=== PATIENT | female | born 1985 | race Caucasian/White ===

== ENCOUNTER 2018-01-27 11:41 | Emergency (ER) | payer OTHER ==
[2018-01-27 12:06] VITALS: BP 152/89
--- NOTE | 2018-01-27 12:52 | ER Document Report ---
ED Medical Screen (RME) - General Chief Complaint: Vaginal Bleeding Stated Complaint: VAGINAL BLEEDING Time Seen by Provider: 01/27/18 12:46 Notes: 32-year-old female patient had a therapeutic on 01/06/2018. She was 13 weeks at that time. She is blood type B+. She reports she has developed bleeding with clots, and passed what she thought may have been tissue this morning. The bleeding has slowed down some since she passed the larger clot/tissue. I have greeted and performed a rapid initial assessment of this patient. A comprehensive ED assessment and evaluation of the patient, analysis of test results and completion of the medical decision making process will be conducted by additional ED providers. TRAVEL OUTSIDE OF THE [place] IN LAST 30 DAYS: No - Related Data Allergies/Adverse Reactions: Penicillins Allergy (Severe, Verified 01/27/18 12:36) Swelling of Throat Past Medical History - Social History Chew tobacco use (# tins/day): No Frequency of alcohol use: Occasional Drug Abuse: None Renal/ Medical History: Denies: Hx Peritoneal Dialysis - Immunizations Hx Diphtheria, Pertussis, Tetanus Vaccination: Yes Physical Exam - Vital signs Vitals: Temp Pulse Resp BP Pulse Ox 98.5 F 97 18 152/89 H 100 01/27/18 12:04 01/27/18 12:04 01/27/18 12:04 01/27/18 12:04 01/27/18 12:04 Course - Vital Signs Vital signs: Temp Pulse Resp BP Pulse Ox 98.5 F 97 18 152/89 H 100 01/27/18 12:04 01/27/18 12:04 01/27/18 12:04 01/27/18 12:04 01/27/18 12:04
[2018-01-27 13:17] LABS: ABSOLUTE EOSINOPHILS # (AUTO) 0.1 10^3/uL (0.0-0.6); ABSOLUTE LYMPHOCYTES (AUTO) 1.4 10^3/uL (0.5-4.7); ABSOLUTE MONOCYTES (AUTO) 0.3 10^3/uL (0.1-1.4); ABSOLUTE NEUT (AUTO) 3.8 10^3/uL (1.7-8.2); BASOPHILS % (AUTO) 0.4 % (0-2); EOSINOPHILS % (AUTO) 0.9 % (0-6); HEMATOCRIT 30.2 % (36.0-47.0); HEMOGLOBIN 10.1 g/dL (12.0-15.5); LYMPHOCYTES % (AUTO) 24.5 % (13-45); MEAN CORPUSCULAR HEMOGLOBIN 29.5 pg (27.0-33.4); MEAN CORPUSCULAR HGB CONC 33.5 g/dL (32.0-36.0); MEAN CORPUSCULAR VOLUME 88 fl (80-97); MONOCYTES % (AUTO) 6.1 % (3-13); PLATELET COUNT 280 10^3/uL (150-450); RED BLOOD COUNT 3.43 10^6/uL (3.72-5.28); RED CELL DISTRIBUTION WIDTH 14.2 % (11.5-14.0); SEGMENTED NEUTROPHILS % (AUTO) 68.1 % (42-78); TOTAL CELLS COUNTED % (AUTO) 100 %; WHITE BLOOD COUNT 5.5 10^3/uL (4.0-10.5)
--- NOTE | 2018-01-27 13:43 | ER Document Report ---
ED General - General Mode of Arrival: Ambulatory Information source: Patient TRAVEL OUTSIDE OF THE [place] IN LAST 30 DAYS: No <CELIA ZHANG - Last Filed: 01/27/18 14:33> <KOSTAS REYNOSO - Last Filed: 01/27/18 14:34> - General Chief Complaint: Vaginal Bleeding Stated Complaint: VAGINAL BLEEDING Time Seen by Provider: 01/27/18 12:46 Notes: Patient is a 32-year-old female presenting to the emergency department with complaints of vaginal bleeding with associated symptoms of dizziness and lightheadedness. Patient states she recently had a surgical on 2017 and has been having intermittent heavy periods since. Patient states she would spot lightly throughout the day and would then have a heavy passing of blood after laying down for prolonged periods of time. Patient states she has been having abdominal cramps although it is similar to her regular menstrual cramps. Patient denies any foul smelling discharge or fevers. (CELIA ZHANG) - Related Data Allergies/Adverse Reactions: Penicillins Allergy (Severe, Verified 01/27/18 12:36) Swelling of Throat Past Medical History - General Information source: Patient - Social History Smoking Status: Never Smoker Chew tobacco use (# tins/day): No Frequency of alcohol use: Occasional Drug Abuse: None Family History: Reviewed & Not Pertinent Patient has suicidal ideation: No Patient has homicidal ideation: No - Immunizations Hx Diphtheria, Pertussis, Tetanus Vaccination: Yes <CELIA ZHANG - Last Filed: 01/27/18 14:33> Review of Systems - Review of Systems Constitutional: No symptoms reported EENT: No symptoms reported Cardiovascular: See HPI, Dizziness, Lightheaded Respiratory: No symptoms reported Gastrointestinal: No symptoms reported Genitourinary: No symptoms reported Female Genitourinary: See HPI, Vaginal bleeding Musculoskeletal: No symptoms reported Skin: No symptoms reported Hematologic/Lymphatic: No symptoms reported Neurological/Psychological: No symptoms reported -: Yes All other systems reviewed and negative <CELIA ZHANG - Last Filed: 01/27/18 14:33> Physical Exam <CELIA ZHANG - Last Filed: 01/27/18 14:33> <KOSTAS REYNOSO - Last Filed: 01/27/18 14:34> - Vital signs Vitals: Temp Pulse Resp BP Pulse Ox 98.5 F 97 18 152/89 H 100 01/27/18 12:04 01/27/18 12:04 01/27/18 12:04 01/27/18 12:04 01/27/18 12:04 - Notes Notes: GENERAL: Alert, interacts well. No acute distress. HEAD: Normocephalic, atraumatic. EYES: Pupils equal, round, and reactive to light. Extraocular movements intact. ENT: Oral mucosa moist, tongue midline. NECK: Full range of motion. Supple. Trachea midline. LUNGS: Clear to auscultation bilaterally, no wheezes, rales, or rhonchi. No respiratory distress. HEART: Regular rate and rhythm. No murmurs, gallops, or rubs. ABDOMEN: Soft, mild suprapubic tenderness to palpation. Non-distended. Bowel sounds present in all 4 quadrants. EXTREMITIES: Moves all 4 extremities spontaneously. No edema, radial and dorsalis pedis pulses 2/4 bilaterally. No cyanosis. NEUROLOGICAL: Alert and oriented x3. Normal speech. PSYCH: Normal affect, normal mood. SKIN: Warm, dry, normal turgor. No rashes or lesions noted. (CELIA ZHANG) Course - Laboratory Result Diagrams: 01/27/18 13:01 <CELIA ZHANG - Last Filed: 01/27/18 14:33> - Laboratory Result Diagrams: 01/27/18 13:01 <KOSTAS REYNOSO - Last Filed: 01/27/18 14:34> - Re-evaluation Re-evalutation: 01/27/18 14:33 Mild anemia very consistent with childbearing age, hemoglobin is 10.1, no indication for transfusion at this time. Vaginal bleeding is less than 1 pad or tampon per hour. There is no fever, no significant abdominal pain, no leukocytosis, no foul-smelling vaginal discharge. Quantitative hCG is 165.76. Patient left without her discharge instructions and then returned to get her discharge instructions. Patient had thorough review of discharge instructions verbally by me and I called her and told her about her positive test. Patient is aware that she needs to have her test repeated in 1 week to ensure that it goes back to completely negative. Patient will return for increasing pain, any fevers or any foul-smelling vaginal discharge. No indication for ultrasound at this time as there is no evidence of endometritis and I have very low suspicion for retained products of conception. (KOSTAS REYNOSO ) - Vital Signs Vital signs: Temp Pulse Resp BP Pulse Ox 98.5 F 97 18 152/89 H 100 01/27/18 12:04 01/27/18 12:04 01/27/18 12:04 01/27/18 12:04 01/27/18 12:04 - Laboratory Laboratory results interpreted by me: 01/27/18 01/27/18 13:01 13:01 RBC 3.43 L Hgb 10.1 L Hct 30.2 L RDW 14.2 H Beta HCG, Quant 165.76 H Discharge <CELIA ZHANG - Last Filed: 01/27/18 14:33> <KOSTAS REYNOSO - Last Filed: 01/27/18 14:34> - Discharge Clinical Impression: Vaginal bleeding Condition: Stable Disposition: HOME, SELF-CARE Additional Instructions: Today your quantitative hCG ( hormone level) is 165. Please have this test repeated in 1 week to ensure that it becomes completely negative and undetectable. Return for vaginal bleeding that soaks through more than 1 pad per hour, foul- smelling vaginal discharge or fevers. Referrals: [facility] [Provider Group] - Follow up in 1 week Scribe Attestation: 01/27/18 14:34 I personally performed the services described in the documentation, reviewed and edited the documentation which was dictated to the scribe in my presence, and it accurately records my words and actions. (KOSTAS REYNOSO) Scribe Documentation - Scribe Written by Grey:: Grey Aguilar, 01/27/2018 14:06 acting as scribe for :: Beverly <CELIA ZHANG - Last Filed: 01/27/18 14:33>
== END 2018-01-27 14:03 | disposition home or self-care (01) ==
LOC: ER 11:41
DX: N93.8 Other specified abnormal uterine and vaginal bleeding (principal); R42 Dizziness and giddiness; Z88.0 Allergy status to penicillin; Z32.01 Encounter for pregnancy test, result positive
CPT/HCPCS: 36415; 84702; 85025; 99284